=== PATIENT | male | born 1990 | race Caucasian/White ===

== ENCOUNTER 2024-03-05 19:50 | Emergency (ER) | payer MEDICAID ==
[~2024-03-05] VITALS: Ht 185.4 cm; Wt 93.5 kg
[2024-03-05 20:15] VITALS: O2SAT 100
[2024-03-05 23:08] LABS: BASOPHILS % 0.5 % (0.0-2.0); DIFFERENTIAL COMMENT 0; EOSINOPHILS % 0.3 % (0.0-5.0); HEMATOCRIT. 43.8 % (42.0-52.0); LYMPHOCYTES % 14.5 % (20.0-50.0); MEAN CORPUSCULAR HEMOGLOBIN 35.3 pg (28.0-32.0); MEAN CORPUSCULAR HGB CONC 34.3 g/dL (31.0-37.0); MEAN CORPUSCULAR VOLUME 102.9 fL (80.0-94.0); MEAN PLATELET VOLUME 8.5 fl (7.4-10.4); MONOCYTES % 7.2 % (2.0-8.0); NEUTROPHILS % 77.5 % (40.0-76.0); PLATELET 315 x1000/uL (130-400); RED BLOOD CELL COUNT 4.25 mill/uL (4.7-6.1); RED CELL DISTRIBUTION WIDTH 13.6 % (11.6-14.6); WHITE BLOOD COUNT 14.6 x1000/uL (4.5-11.0)
[2024-03-05 23:14] LABS: CHLORIDE 100 mEq/L (98-107); POTASSIUM 3.5 mEq/L (3.5-5.1); SODIUM 138 mEq/L (136-145)
[2024-03-05 23:15] LABS: CALCIUM 9.5 mg/dL (8.7-10.4); CARBON DIOXIDE 21 mEq/L (21-32)
[2024-03-05 23:20] LABS: GLUCOSE 115 mg/dL (70-105)
[2024-03-05 23:21] LABS: ETHANOL BLOOD 300 mg/dL (<10); UREA NITROGEN BLOOD 6 mg/dL (9-23)
[2024-03-05 23:22] LABS: ALANINE AMINOTRANSFERASE 85 IU/L (10-49); ALBUMIN 4.8 g/dL (3.2-4.8); ASPARTATE AMINOTRANSFERASE 261 IU/L (<34); BILIRUBIN DIRECT 0.6 mg/dL (<=3.0); PHOSPHORUS 2.2 mg/dL (2.5-4.9); PROTEIN TOTAL 10.4 g/dL (6.0-8.3)
[2024-03-05 23:23] LABS: BILIRUBIN TOTAL 1.2 mg/dL (0.1-1.0)
[2024-03-06] MEDS ORDERED: CHLORDIAZEPOXIDE 10MG CAPSULE PO ONE
[2024-03-06 01:20] VITALS: TEMP 36.66960
[2024-03-06] MEDS: CHLORDIAZEPOXIDE 25MG CAPSULE PO NR (01:21)
[2024-03-06 02:07] VITALS: BP 159/94; PULSE 132; RESP 16; O2SAT 100
== END 2024-03-06 02:14 | disposition home or self-care (01) ==
LOC: ER 19:50
DX: F10.229 Alcohol dependence with intoxication, unspecified (principal); F41.9 Anxiety disorder, unspecified; Y90.8 Blood alcohol level of 240 mg/100 ml or more
CPT/HCPCS: 36415; 80048; 80076; 80320; 83735; 84100; 85025; 93005; 99284; G0480